=== PATIENT | female | born 1930 | race Caucasian/White ===

== ENCOUNTER 2017-01-22 19:21 | Emergency (ER) | payer OTHER ==
[~2017-01-22] VITALS: Ht 152.4 cm; Wt 63.0 kg
[2017-01-22 19:30] VITALS: TEMP 37.3; Ht 152.4 cm; Wt 63.0 kg
[2017-01-22] MEDS ORDERED: DIPHTHERIA/TETANUS/PERTUSSIS 0.5 ML SYR/VIAL IM. ONE (19:45)
[2017-01-22] MEDS ORDERED: AMLO-110 PO (20:25)
[2017-01-22] MEDS ORDERED: ATOR10TA88 PO (20:25)
[2017-01-22] MEDS ORDERED: OMEP40CA41 PO (20:25)
[2017-01-22] MEDS ORDERED: LUTE15CA PO (20:25)
--- NOTE | 2017-01-22 20:43 | DIAGNOSTIC IMAGING REPORT ---
R ELBOW MIN 3 VIEWS ROUTINE CLINICAL HISTORY: eval for fx trauma. Pain. COMPARISON: None. DISCUSSION: The bones and joint spaces appear intact. There is no evidence of fracture, dislocation or bony disease. There is no evidence for soft tissue swelling. Benign soft tissue calcification of the mid arm IMPRESSION: Negative study. The above report was generated using voice recognition software. It may contain grammatical, syntax or spelling errors. Electronically signed by: Angel Luis Canela M.D. 01/22/2017 8:42 PM Dictated Date/Time: 01/22/2017 8:41 PM
--- NOTE | 2017-01-22 20:44 | DIAGNOSTIC IMAGING REPORT ---
R HIP UNILATERAL 2 VIEWS CLINICAL HISTORY: eval for fx trauma COMPARISON: None. DISCUSSION: The bones and joint spaces appear intact. There is no evidence of fracture, dislocation or bony disease. There is no evidence for soft tissue swelling. IMPRESSION: Negative study. The above report was generated using voice recognition software. It may contain grammatical, syntax or spelling errors. Electronically signed by: Angel Luis Canela M.D. 01/22/2017 8:43 PM Dictated Date/Time: 01/22/2017 8:42 PM
[2017-01-22] MEDS ORDERED: ACETAMINOPHEN 325 MG TAB ONE (20:46)
--- NOTE | 2017-01-22 20:46 | DIAGNOSTIC IMAGING REPORT ---
R SHOULDER MIN 2 VIEWS ROUTINE CLINICAL HISTORY: eval for fx COMPARISON: None. DISCUSSION: The bones and joint spaces appear intact. There is no evidence of fracture, dislocation or bony disease. There is no evidence for soft tissue swelling. Mild degenerative change mild calcific supraspinatus tendinitis IMPRESSION: Negative study. Mild degenerative change. Mild calcific supraspinatus tendinitis. The above report was generated using voice recognition software. It may contain grammatical, syntax or spelling errors. Electronically signed by: Angel Luis Canela M.D. 01/22/2017 8:45 PM Dictated Date/Time: 01/22/2017 8:44 PM
[2017-01-22 21:42] VITALS: BP 140/65; PULSE 76; O2SAT 95
--- NOTE | 2017-01-23 00:21 | EMERGENCY ROOM VISIT NOTE ---
History Report prepared by Ritika: Danielle Musa Under the Supervision of: Dr. Glenroy Mo M.D. First contact with patient: 19:35 Chief Complaint: FALL Stated Complaint: FELL ON RIGHT SIDE, BRUISED ELBOW History of Present Illness The patient is an 86 year old female who presents to the Emergency Room with complaints of a sudden fall that occurred just prior to arrival. She rates her discomfort as a 7/10 in severity. The patient states that as she was walking, a trolly was coming towards her with a box on it. She states in order to avoid being hit with the trolly, she fell out of the way onto her right elbow, right shoulder, and right hip. The patient reports pain to her right elbow, right shoulder, and right hip. She denies any head trauma or headache. The patient states that she felt dizzy when she stood up, but denies any current dizziness. She denies any neck pain, chest pain, or abdominal pain. The patient is unsure of her last tetanus booster. She does state that her hip pain is much better and she is able to walk on it. Source of History: patient Onset: prior to arrival Position: other (global) Symptom Intensity: 7/10 Quality: other (fall) Timing: other (sudden) Associated Symptoms: No headache, No neck pain, No chest pain, No abdominal pain Note: Associated Symptoms: right elbow, right shoulder, and right hip pain. Review of Systems See HPI for pertinent positives & negatives. A total of 10 systems reviewed and were otherwise negative. Past Medical & Surgical Medical Problems: (1) Asthma (2) Hypertension (3) Stomach problems Surgical Problems: (1) Hx of tonsillectomy Family History Heart disease Hypertension Kidney disease Kidney stones Social History Smoking Status: Never Smoker Smokeless Tobacco Use: No Alcohol Use: none Marital Status: Housing Status: lives with significant other Occupation Status: retired Current/Historical Medications Scheduled Amlodipine (Norvasc), 5 MG PO DAILY Atorvastatin (Lipitor), 10 MG PO DAILY Lutein-Zeaxanthin (Lutein), 1 CAP PO DAILY Omeprazole (Prilosec), 40 MG PO DAILY Allergies Coded Allergies: Fish (Verified Allergy, Unknown, hives, 01/22/17) Penicillins (Verified Allergy, Unknown, swelling of face, 01/22/17) Aspirin (Verified Adverse Reaction, Unknown, vomit, 01/22/17) Physical Exam Vital Signs Date Time Temp Pulse Resp B/P (MAP) Pulse Ox O2 Delivery O2 Flow Rate FiO2 01/22/17 21:42 76 16 140/65 95 01/22/17 21:22 76 16 140/65 95 Room Air 01/22/17 19:30 37.3 79 18 126/72 97 Room Air Physical Exam Constitutional: Vital signs reviewed. Eyes: Pupils are equal round reactive to light. Conjunctiva are noninjected. ENT: Pharynx is clear without erythema or exudate. Mucous membranes are moist. Neck supple without meningeal signs. No midline tenderness to the cervical spine. Respiratory: Clear to auscultation bilaterally. Breath sounds are equal bilaterally. Cardiovascular: Regular rate and rhythm. No rubs or gallops. Systolic murmur right second ICS. GI: Soft, nondistended and nontender. Bowel sounds are present. Musculoskeletal: Tenderness to the AC joint at the right shoulder, no deformity. Tenderness to the right lateral epicondyle with abrasion. No hip tenderness or bruising. No pain with rocking of the pelvis. Integumentary: No cyanosis. Neurological: The patient is awake and alert. No focal deficits. Psychiatric: Normal affect. Medical Decision & Procedures ER Provider Diagnostic Interpretation: X-ray results as stated below per interpretation by me and the radiologist: R SHOULDER MIN 2 VIEWS ROUTINE CLINICAL HISTORY: eval for fx COMPARISON: None. DISCUSSION: The bones and joint spaces appear intact. There is no evidence of fracture, dislocation or bony disease. There is no evidence for soft tissue swelling. Mild degenerative change mild calcific supraspinatus tendinitis IMPRESSION: Negative study. Mild degenerative change. Mild calcific supraspinatus tendinitis. The above report was generated using voice recognition software. It may contain grammatical, syntax or spelling errors. Electronically signed by: Angel Luis Canela M.D. 01/22/2017 8:45 PM Dictated Date/Time: 01/22/2017 8:44 PM R HIP UNILATERAL 2 VIEWS CLINICAL HISTORY: eval for fx trauma COMPARISON: None. DISCUSSION: The bones and joint spaces appear intact. There is no evidence of fracture, dislocation or bony disease. There is no evidence for soft tissue swelling. IMPRESSION: Negative study. The above report was generated using voice recognition software. It may contain grammatical, syntax or spelling errors. Electronically signed by: Angel Luis Canela M.D. 01/22/2017 8:43 PM Dictated Date/Time: 01/22/2017 8:42 PM R ELBOW MIN 3 VIEWS ROUTINE CLINICAL HISTORY: eval for fx trauma. Pain. COMPARISON: None. DISCUSSION: The bones and joint spaces appear intact. There is no evidence of fracture, dislocation or bony disease. There is no evidence for soft tissue swelling. Benign soft tissue calcification of the mid arm IMPRESSION: Negative study. The above report was generated using voice recognition software. It may contain grammatical, syntax or spelling errors. Electronically signed by: Angel Luis Canela M.D. 01/22/2017 8:42 PM Dictated Date/Time: 01/22/2017 8:41 PM Medications Administered Medications (Trade) Dose Ordered Sig/Ayima Route Start Time Stop Time Status Last Admin Dose Admin Diphtheria/ Pertussis/Tetanus Vacc (Adacel Inj) 0.5 ml ONCE ONCE IM. 01/22/17 19:45 01/22/17 19:46 DC 01/22/17 20:41 0.5 ML Acetaminophen (Tylenol Tab) 650 mg STK-MED ONCE .ROUTE 01/22/17 20:46 01/22/17 20:47 DC 01/22/17 20:48 650 MG ED Course 1934: The patient was evaluated in room C1B. A complete history and physical exam was performed. 1944: Ordered Adacel Inj 0.5 ml IM. 2045: Ordered Tylenol Tab 650 mg .route. 2111: I reevaluated the patient and she is doing well. I discussed the test results with her and her daughter who is translating. I discussed the treatment plan and they verbalized complete understanding and agreement. The patient is ready for discharge. Medical Decision This is an 86-year-old female who presents with injuries after fall. Differential diagnosis includes contusion, fracture, dislocation. I did perform a limited focused review of portions of the patient's old chart on the electronic medical record. The patient has had no prior visits. I did evaluate the patient as noted above. I did obtain history from the patient as well as her daughter who was helping with translation. The patient is presenting with a mechanical fall with pain to the right side of her arm and hip. She did not have any head injury. She did feel lightheaded upon initially standing after the fall but now feels better. She had no symptoms prior to the fall. I did order x-rays of the right upper extremity and right hip. I did review the images myself as well as the radiology report as described above. There is no evidence of acute fracture or dislocation. She does have foot appears to be calcific tendinitis of the supraspinatus tendon. The patient was given an Adacel shot IM. She was given Tylenol for her pain. I did discuss the test results with the patient and daughter. I did give the patient a sling which she will use only as needed. She will follow with her doctor. She was discharged in good condition. Medication Reconcilliation Current Medication List: was personally reviewed by me Blood Pressure Screening Patient's blood pressure: Elevated blood pressure Blood pressure disposition: Elevated BP felt to be situational, Did not require urgent referral Impression Primary Impression: Multiple contusions Additional Impression: Fall Scribe Attestation The scribe's documentation has been prepared under my direct and personally reviewed by me in its entirety. I confirm that the note above accurately reflects all work, treatment, procedures, and medical decision making performed by me. Departure Information Dispostion Home / Self-Care Referrals No Doctor, Assigned (PCP) Forms HOME CARE DOCUMENTATION FORM, IMPORTANT VISIT INFORMATION Patient Instructions Bruises Contusions, My [facility] Additional Instructions You have been examined and treated today on an emergency basis only. This is not a substitute for, or an effort to provide, complete comprehensive medical care. It is impossible to recognize and treat all injuries or illnesses in a single emergency department visit. It is therefore important that you follow up closely with your physician. Call as soon as possible for an appointment. Return for worsening symptoms or if you develop any other concerning symptoms. Problem Qualifiers Additional Impression: Fall Encounter type: initial encounter Qualified Codes: W19.XXXA - Unspecified fall, initial encounter
== END 2017-01-22 21:30 | disposition home or self-care (01) ==
LOC: C.EDB 19:27 → C.EDC 21:30
DX: T14.8 Other injury of unspecified body region (principal); W19.XXXA Unspecified fall, initial encounter; Y92.89 Other specified places as the place of occurrence of the external cause; J45.909 Unspecified asthma, uncomplicated; I10 Essential (primary) hypertension; Z82.49 Family history of ischemic heart disease and other diseases of the circulatory system; Z84.1 Family history of disorders of kidney and ureter; Z79.899 Other long term (current) drug therapy

== ENCOUNTER 2019-11-26 14:28 | Observation (INO) ==
--- NOTE | 2019-11-26 15:32 | Emergency Department Note ---
History of Present Illness General Chief complaint: Chest Pain Stated complaint: CHEST PAIN,SOB Time Seen by Provider: 11/26/19 15:12 Source: patient and family Mode of arrival: ambulatory Limitations: language barrier History of Present Illness Provider complaint: Chest pain Onset (ago): year(s) Location: chest Radiation: non-radiation Pain Consistency: + now resolved Quality: + other (Pressure) Relieved By: + rest and + other (Removal of bra) Exacerbated By: + other (Exertion) Associated symptoms: + shortness of breath; no chest pain, no cough, no fever/chills and no nausea/vomiting This is an 89-year-old female who presents with intermittent chest pressure for the past 2 to 3 years. The patient states that she has the symptoms almost every day. Her daughter states that she likes to self diagnose and often just tells her self it is allergies. There is a strong family history of cardiac disease but she has no personal history of CAD. She describes the chest discomfort as a pressure across her upper chest. It does not radiate. It is worse with exertion and better with rest. She states that sometimes it is better when she takes off her bra. She also states that at times she gets it at rest. It is associated with some shortness of breath as well as some ligh theadedness. She went to her PCP today who sent her here for evaluation. The patient believes she had a cardiac stress test 3 years ago and was told that the pressure in her chest was not from her heart. She denies any fever, cough or cold symptoms, abdominal pain, vomiting or known exposure to COVID-19. She is not having any chest discomfort at this time. She did just walk from the waiting room to room C2. Home Medications Home Medications Medication Instructions Recorded Confirmed Type amlodipine 10 mg PO QPM 11/26/19 11/26/19 History wzdvaqzr-wxp-DE-lycopen-lutein 1 tab PO QAM 11/26/19 11/26/19 History [Centrum Silver] omeprazole 40 mg PO QAM 11/26/19 11/26/19 History psyllium husk [Fiber-Caps 0 g PO AMPM 11/26/19 11/26/19 History (psyllium husk)] simvastatin 10 mg PO QPM 11/26/19 11/26/19 History vit C,H-Pz-szqgn-lutein-zeaxan 1 tab PO AMPM 11/26/19 11/26/19 History [PreserVision AREDS-2] Allergies Allergy/AdvReac Type Severity Reaction Status Date / Time Penicillins Allergy Unknown swelling Verified 11/26/19 16:04 of face aspirin AdvReac Unknown vomit Verified 11/26/19 16:04 Fish Allergy Unknown hives Uncoded 11/26/19 16:04 Past Med/Surg History Medical History Hyperlipidemia Hypertension (Chronic) Family History Mother Heart disease Social History Smoking Status: Never smoker Do You Dip or Chew Tobacco: No; Hx Alcohol Use: No Hx Substance Use: No Preferred Language: Mohawk Communication Ability: Effective Childhood Development Teacher Required: Yes Beliefs That Will Affect Care: None Current Living Situation: Family Other Information That Helps Us Care for You: No Feels Safe at Home: Yes Safety Concerns: Feels Safe At This Time Review of Systems See HPI for pertinent positives & negatives. and A total of 10 systems reviewed and were otherwise negative Physical Exam Vital Signs Vital Signs - 24 hr 11/26/19 14:36 11/26/19 15:40 11/26/19 15:45 Temperature 36.6 C Temperature Source Oral Pulse Rate 70 71 71 Pulse Rate from SpO2 Sensor 70 Pulse Rhythm Regular Respiratory Rate 20 16 23 Respiratory Depth Normal Blood Pressure 136/67 163/77 H Blood Pressure Mean 90 107 Pulse Oximetry 99 100 100 Oxygen Delivery Method Room Air Room Air Sepsis Recent Fever Within 48 Hours No Sepsis New/Unexplained Change in Mental Status N/A Sepsis Action Taken by Nursing No Action Required 11/26/19 16:00 11/26/19 16:30 11/26/19 17:00 Temperature Temperature Source Pulse Rate 70 70 70 Pulse Rate from SpO2 Sensor 70 70 70 Pulse Rhythm Respiratory Rate 23 16 15 Respiratory Depth Blood Pressure 149/65 H 145/71 H 144/68 H Blood Pressure Mean 92 108 119 Pulse Oximetry 98 99 100 Oxygen Delivery Method Room Air Room Air Room Air Sepsis Recent Fever Within 48 Hours Sepsis New/Unexplained Change in Mental Status Sepsis Action Taken by Nursing 11/26/19 17:31 11/26/19 18:00 11/26/19 18:30 Temperature Temperature Source Pulse Rate 74 76 76 Pulse Rate from SpO2 Sensor 74 76 75 Pulse Rhythm Respiratory Rate 19 19 21 Respiratory Depth Blood Pressure 174/84 H 149/81 H 157/64 H Blood Pressure Mean 141 118 96 Pulse Oximetry 99 97 98 Oxygen Delivery Method Room Air Room Air Room Air Sepsis Recent Fever Within 48 Hours Sepsis New/Unexplained Change in Mental Status Sepsis Action Taken by Nursing 11/26/19 19:00 Temperature Temperature Source Pulse Rate 83 Pulse Rate from SpO2 Sensor 82 Pulse Rhythm Respiratory Rate 19 Respiratory Depth Blood Pressure 164/90 H Blood Pressure Mean 131 Pulse Oximetry 97 Oxygen Delivery Method Room Air Sepsis Recent Fever Within 48 Hours Sepsis New/Unexplained Change in Mental Status Sepsis Action Taken by Nursing Constitutional: Vital signs reviewed. Eyes: Pupils are equal round reactive to light. Conjunctiva are noninjected. ENT: Pharynx is clear without erythema or exudate. Mucous membranes are moist. Neck supple without meningeal signs. Respiratory: Clear to auscultation bilaterally. Breath sounds are equal bilaterally. Cardiovascular: Regular rate and rhythm. Early systolic murmur best heard in the second right ICS. GI: Soft, nondistended and nontender. Bowel sounds are present. Musculoskeletal: No peripheral edema. No lower extremity tenderness. Integumentary: No cyanosis. or jaundice. Neurological: The patient is awake and alert. No focal deficits. Psychiatric: Normal affect. Not anxious appearing. Course Administered Medications Amlodipine Besylate (Norvasc) 10 mg PO QPM [facility] Stop: 12/26/19 20:59 Last Admin: 11/26/19 21:12 Dose: 10 mg Documented by: [id number] Heparin Sodium (Porcine) (Heparin Sodium (Porcine)) 5,000 units SQ Q12 PATRICK Stop: 12/26/19 20:59 Last Admin: 11/26/19 21:12 Dose: 5,000 units Documented by: [id number] Cosigned by: [id number] Medical Decision Making Differential Diagnosis Unstable angina, OR, GERD, pleurisy, pneumonia Medical Records Attestation: I reviewed the patient's medical records. I did perform a limited focused review of portions of the patient's old chart on the electronic medical record. The patient has had no recent pertinent visits to this hospital. Home Medications Current Medication List: was personally reviewed by me Laboratory Data Attestation: I reviewed the patient's lab results. Result diagrams: 11/26/19 15:40 11/26/19 15:40 Lab Results 11/26/19 11/26/19 11/26/19 Range/Units 15:40 15:40 15:40 WBC 7.32 (4.8-10.8) K/uL RBC 4.14 L (4.2-5.4) M/uL Hgb 12.9 (12.0-16.0) g/dL Hct 38.4 (37-47) % MCV 92.8 (80-100) fL MCH 31.2 (25-34) pg MCHC 33.6 (32-36) g/dL RDW Std Deviation 46.0 (36.4-46.3) fL RDW Coeff of Katty 13.6 (11.5-14.5) % Plt Count 281 (130-400) K/uL MPV 9.8 (7.4-10.4) fL Immature Gran % (Auto) 0.1 % Neut % (Auto) 56.5 % Lymph % (Auto) 30.9 % [place]ois % (Auto) 9.3 % Eos % (Auto) 2.7 % Baso % (Auto) 0.5 % Neut # (Auto) 4.13 (1.4-6.5) K/uL Lymph # (Auto) 2.26 (1.2-3.4) K/uL [place]ois # (Auto) 0.68 H (0.11-0.59) K/uL Eos # (Auto) 0.20 (0-0.5) K/uL Baso # (Auto) 0.04 (0-0.2) K/uL Immature Gran # (Auto) 0.01 (0.00-0.02) K/uL PT 10.7 (9.0-12.0) Seconds INR 1.0 (0.9-1.1) APTT 29.1 (21.0-31.0) Seconds PTT Ratio 1.0 Sodium 142 (136-145) mmol/L Potassium 4.2 (3.5-5.1) mmol/L Chloride 112 H (98-107) mmol/L Carbon Dioxide 26 (21-32) mmol/L Anion Gap 4.0 (3-11) BUN 23 H (7-18) mg/dl Creatinine 0.83 (0.6-1.2) mg/dl Est Cr Clr Drug Dosing 37.9 ml/min Est GFR ( Amer) 72.5 Est GFR (Non-Af Amer) 62.5 BUN/Creatinine Ratio 27.2 H (10-20) Glucose 74 (70-99) mg/dl Calcium 9.5 (8.5-10.1) mg/dl Total Bilirubin 0.5 (0.2-1) mg/dl AST 15 (15-37) U/L ALT 18 (12-78) U/L Alkaline Phosphatase 102 (45-117) U/L Troponin I < 0.015 (0-0.045) ng/ml Total Protein 7.8 (6.4-8.2) gm/dl Albumin 3.7 (3.4-5.0) gm/dl Globulin 4.1 H (2.5-4.0) gm/dl Albumin/Globulin Ratio 0.9 (0.9-2) Imaging Data Radiologist's Impression: XR chest 1V portable CLINICAL HISTORY: Chest Pain pain COMPARISON STUDY: No previous studies for comparison. FINDINGS: The bones soft tissues and hemidiaphragms are normal. The cardiome diastinal silhouette is normal. The lungs are clear. The pulmonary vasculature is normal. IMPRESSION: Negative chest. ACT 112: Negative or not required by law. The above report was generated using voice recognition software. It may contain grammatical, syntax or spelling errors. Electronically signed by: Angel Luis Canela M.D. 11/26/2019 4:00 PM Dictated: 11/26/19 1600 Transcribed: 11/26/19 1600 ECG Data Attestation: I personally reviewed and interpreted this ECG as follows: Indication: + chest pain Rate (beats per minute): 70 Rhythm: + normal sinus ECG Intervals/blocks: no Left bundle branch block ECG ST segments: no ST elevation ECG Findings: no PVCs Blood Pressure Blood Pressure Findings: Elevated blood pressure Blood Pressure Disposition: Referred to patients primary care provider [facility] Narrative I did evaluate the patient as noted above. I did obtain history from the patient as well as from her daughter who is assisting with translation. They declined a formal oil and gas field technician. IV access was established. I did place an order for continuous cardiac monitoring. The monitor showed normal sinus rhythm at a rate of 73. I did order and personally review the patient's 12-lead EKG as described above. She has no acute ischemic changes. I did order and personally reviewed the images of the patient's chest x-ray as described above. There is no evidence of pneumonia or acute abnormality. I did order and review the patient's blood work as noted in the electronic medical record. CBC is unremarkable without leukocytosis or anemia. Troponin is negative. I did reassess the patient. I did discuss the test results with the patient and her daughter. I did recommend hospitalization for repeat cardiac biomarkers and further evaluation. They were agreeable with this plan. I did discuss the case with the hospitalist and case liner. Impression & Plan Exertional chest pain Discharge Plan Visit Data *Final* Discharge Date/Time: 11/26/19 19:54 Chief Complaint: Chest Pain Stated Complaint: CHEST PAIN,SOB ED Provider: Glenroy Mo Discharge Problem: Exertional chest pain Patient Disposition: Admitted As Inpatient Discharge Instructions Interventions: ED Discharge Assessment Last Done: 11/26/19 19:54
[2019-11-26 15:56] LABS: Basophils # (auto) 0.04 K/uL (0-0.2); Basophils % (auto) 0.5 %; Eosinophils % (auto) 2.7 %; Hematocrit (blood only) 38.4 % (37-47); Hemoglobin 12.9 g/dL (12.0-16.0); Immature Granulocytes # (auto) 0.01 K/uL (0.00-0.02); Immature Granulocytes % (auto) 0.1 %; Lymphocytes # (auto) 2.26 K/uL (1.2-3.4); Lymphocytes % (auto) 30.9 %; Mean Corpuscular Hemoglobin 31.2 pg (25-34); Mean Corpuscular Hgb Conc 33.6 g/dL (32-36); Mean Corpuscular Volume 92.8 fL (80-100); Mean Platelet Volume 9.8 fL (7.4-10.4); Monocytes # (auto) 0.68 K/uL (0.11-0.59); Monocytes % (auto) 9.3 %; Neutrophils # (auto) 4.13 K/uL (1.4-6.5); Neutrophils % (auto) 56.5 %; Platelet Count 281 K/uL (130-400); RDW Coefficient of Variation 13.6 % (11.5-14.5); Red Blood Count 4.14 M/uL (4.2-5.4); White Blood Count 7.32 K/uL (4.8-10.8)
--- NOTE | 2019-11-26 16:02 | XRay Report ---
XR chest 1V portable CLINICAL HISTORY: Chest Pain pain COMPARISON STUDY: No previous studies for comparison. FINDINGS: The bones soft tissues and hemidiaphragms are normal. The cardiomediastinal silhouette is n ormal. The lungs are clear. The pulmonary vasculature is normal. IMPRESSION: Negative chest. ACT 112: Negative or not required by law. The above report was generated using voice recognition software. It may contain grammatical, syntax or spelling errors. Electronically signed by: Angel Luis Canela M.D. 11/26/2019 4:00 PM
[2019-11-26 16:06] LABS: Partial Thromboplastin Time 29.1 Seconds (21.0-31.0); Prothrombin Time 10.7 Seconds (9.0-12.0)
[2019-11-26 16:19] LABS: Alanine Aminotransferase 18 U/L (12-78); Albumin Level 3.7 gm/dl (3.4-5.0); Aspartate Aminotransferase 15 U/L (15-37); BUN Creatinine Ratio 27.2 (10-20); Blood Urea Nitrogen 23 mg/dl (7-18); Calcium 9.5 mg/dl (8.5-10.1); Carbon Dioxide 26 mmol/L (21-32); Chloride 112 mmol/L (98-107); Creatinine Clr Calc Pharmacy 37.9 ml/min; Est GFR (African American) 72.5; Est GFR (Non-African American) 62.5; Glucose 74 mg/dl (70-99); Potassium 4.2 mmol/L (3.5-5.1); Sodium 142 mmol/L (136-145)
[2019-11-26 16:24] LABS: Albumin Globulin Ratio 0.9 (0.9-2); Alkaline Phosphatase 102 U/L (45-117); Bilirubin,Total 0.5 mg/dl (0.2-1); Globulin 4.1 gm/dl (2.5-4.0); Total Protein 7.8 gm/dl (6.4-8.2); Troponin I < 0.015 ng/ml (0-0.045)
--- NOTE | 2019-11-26 19:28 | History & Physical Report ---
Date of Service November 26, 2019 Assessment & Plan (1) Shortness of breath: 89 yo F PMHx HTN, HLD, seasonal allergies for admission to observation for chest pressure rule out. Chest pressure and SOB with activity: - Patient without symptoms of SOB or chest pain at this time. - CXR negative for pneumonia. - Initial troponin negative, will trend. - EKG without ST/T wave changes. - Differentials include severe valvular pathology (such as aortic stenosis) causing SOB and chest pressure with exertion; also ACS/stable angina. - Patient with recent fasting BSG 92, total cholesterol 226, HDL 81, LDL 124 in May 2019. Will not repeat. - May require titration of cholesterol medication. - Cannot take baby aspirin due to intolerance (vomiting side effect). - For Echo tomorrow AM, Heart Healthy diet until midnight. HTN: - Continue home amlodipine. HLD: - Continue home simvastatin. Code Status: FULL CODE FEN/GI: Heart Healthy, NPO at midnight DVT ppx: Heparin 5000u SQ q12h Dispo: Med/Surg with Telemetry for cardiac monitoring, Echo AM (2) Chest pressure: (3) Hypertension: (4) Hyperlipidemia: History of Present Illness Chief Complaint: chest pressure and SOB with exertion Primary Care Provider: Barry Liu 89 yo Ukrainian-speaking F with PMHx HTN, HLD, seasonal allergies presents with daughter following appointment with primary care office. Daughter provides some history and assisted in translation. Patient reports that for 2-3 years she has had worsening SOB/chest pressure with exertion, such that now she will become somewhat SOB even just getting up from a chair to do the dishes. At non-acute visit today at Dr. Liu's office she mentioned these symptoms and was advised to come to ED for evaluation. She does not endorse fevers or chills, CP/SOB with rest, orthopnea, wheezing, recent URI, sick contacts, constipation or diarrhea, nausea or vomiting, dizziness or headache. Has a history of heart disease in her mother in her 70s. Patient does not drink, has never been a smoker, and no history illicit drug use. Allergies Allergy/AdvReac Type Severity Reaction Status Date / Time Penicillins Allergy Unknown swelling Verified 11/26/19 16:04 of face aspirin AdvReac Unknown vomit Verified 11/26/19 16:04 Fish Allergy Unknown hives Uncoded 11/26/19 16:04 Home Medications Home Medications Medication Instructions Recorded Confirmed Type amlodipine 10 mg PO QPM 11/26/19 11/26/19 History szdbefdc-ygw-YZ-lycopen-lutein 1 tab PO QAM 11/26/19 11/26/19 History [Centrum Silver] omeprazole 40 mg PO QAM 11/26/19 11/26/19 History psyllium husk [Fiber-Caps 0 g PO AMPM 11/26/19 11/26/19 History (psyllium husk)] simvastatin 10 mg PO QPM 11/26/19 11/26/19 History vit C,G-Xp-pgejt-lutein-zeaxan 1 tab PO AMPM 11/26/19 11/26/19 History [PreserVision AREDS-2] Past Med/Surg History Medical History Hyperlipidemia Hypertension (Chronic) Family History Mother Heart disease Social History Smoking Status: Never smoker Do You Dip or Chew Tobacco: No; Hx Alcohol Use: No Hx Substance Use: No Preferred Language: Ukrainian Communication Ability: Effective Flight Manager Required: Yes Beliefs That Will Affect Care: None Current Living Situation: Family Other Information That Helps Us Care for You: No Feels Safe at Home: Yes Safety Concerns: Feels Safe At This Time Review of Systems Review of Systems: All systems reviewed & are unremarkable except as noted in HPI & below Physical Exam Constitutional: WD/WN, vitals as above Eyes: PERRL, conjunctivae normal, anicteric sclerae ENMT: external ear and nose normal, oropharynx normal Neck: normal visual inspection Respiratory: normal respiratory effort, lungs clear to auscultation Cardiovascular: Rate/Rhythm: regular rate and regular rhythm Heart Sounds: + murmur (4/6 systolic murmur best heard over RUSB with radiation to b/l carotids) Gastrointestinal (Abdomen): normal bowel sounds, soft, nontender, no hepatosplenomegaly Musculoskeletal: no cyanosis or clubbing, extremities motor strength 5/5 Skin: no rashes, warm and dry Neurologic: moves all extremities; no focal motor deficits Speech / Cognition: normal speech Motor/Sensory: no tremor Psychiatric: A+Ox3, euthymic affect Results & Data Results & Data ([facility]) Vital Signs (Past 12 Hours) Vital Signs Temp Pulse Resp BP Pulse Ox 11/26/19 17:31 74 19 174/84 H 99 11/26/19 17:00 70 15 144/68 H 100 11/26/19 16:30 70 16 145/71 H 99 11/26/19 16:00 70 23 149/65 H 98 11/26/19 15:45 71 23 163/77 H 100 11/26/19 15:40 71 16 100 11/26/19 14:36 36.6 C 70 20 136/67 99 Laboratory Results Lab Results 11/26/19 11/26/19 11/26/19 Range/Units 15:40 15:40 15:40 WBC 7.32 (4.8-10.8) K/uL RBC 4.14 L (4.2-5.4) M/uL Hgb 12.9 (12.0-16.0) g/dL Hct 38.4 (37-47) % MCV 92.8 (80-100) fL MCH 31.2 (25-34) pg MCHC 33.6 (32-36) g/dL RDW Std Deviation 46.0 (36.4-46.3) fL RDW Coeff of Katty 13.6 (11.5-14.5) % Plt Count 281 (130-400) K/uL MPV 9.8 (7.4-10.4) fL Immature Gran % (Auto) 0.1 % Neut % (Auto) 56.5 % Lymph % (Auto) 30.9 % [place] % (Auto) 9.3 % Eos % (Auto) 2.7 % Baso % (Auto) 0.5 % Neut # (Auto) 4.13 (1.4-6.5) K/uL Lymph # (Auto) 2.26 (1.2-3.4) K/uL [place] # (Auto) 0.68 H (0.11-0.59) K/uL Eos # (Auto) 0.20 (0-0.5) K/uL Baso # (Auto) 0.04 (0-0.2) K/uL Immature Gran # (Auto) 0.01 (0.00-0.02) K/uL PT 10.7 (9.0-12.0) Seconds INR 1.0 (0.9-1.1) APTT 29.1 (21.0-31.0) Seconds PTT Ratio 1.0 Sodium 142 (136-145) mmol/L Potassium 4.2 (3.5-5.1) mmol/L Chloride 112 H (98-107) mmol/L Carbon Dioxide 26 (21-32) mmol/L Anion Gap 4.0 (3-11) BUN 23 H (7-18) mg/dl Creatinine 0.83 (0.6-1.2) mg/dl Est Cr Clr Drug Dosing 37.9 ml/min Est GFR ( Amer) 72.5 Est GFR (Non-Af Amer) 62.5 BUN/Creatinine Ratio 27.2 H (10-20) Glucose 74 (70-99) mg/dl Calcium 9.5 (8.5-10.1) mg/dl Total Bilirubin 0.5 (0.2-1) mg/dl AST 15 (15-37) U/L ALT 18 (12-78) U/L Alkaline Phosphatase 102 (45-117) U/L Troponin I < 0.015 (0-0.045) ng/ml Total Protein 7.8 (6.4-8.2) gm/dl Albumin 3.7 (3.4-5.0) gm/dl Globulin 4.1 H (2.5-4.0) gm/dl Albumin/Globulin Ratio 0.9 (0.9-2) Diagnostic Findings XR chest 1V portable CLINICAL HISTORY: Chest Pain pain COMPARISON STUDY: No previous studies for comparison. FINDINGS: The bones soft tissues and hemidiaphragms are normal. The cardiomediastinal silhouette is normal. The lungs are clear. The pulmonary vasculature is normal. IMPRESSION: Negative chest. ACT 112: Negative or not required by law. The above report was generated using voice recognition software. It may contain grammatical, syntax or spelling errors. Electronically signed by: Angel Luis Canela M.D. 11/26/2019 4:00 PM Dictated: 11/26/19 1600 Transcribed: 11/26/19 1600 ECG Additional Comments: NSR at 70bpm, HH=341, QRS=92, FRb=356, no acute ischemic changes Code Status & VTE Plan VTE Prophylaxis Plan VTE Prophylaxis will be ordered: Yes Supervising Physician Co-Signing Physician Notes Patient seen and examined, chart reviewed, case discussed with Dr. Padron and I agree with her assessment and plan as documented above. Briefly, patient is an 89yo female presenting with progressive GRADY/SOB and chest pressure with exertion. On exam she is afebrile, hypertensive at 174/84 otherwise HD stable, NAD Skin -no rash HEENT - NC/AT, PERRL, EOMI, MMM, Neck supple Heart - +S1/S2, regular, 4/6 CLARITZA at 2nd right ICS with radiation across the precordium and to bilateral carotids Lungs - CTA Abd - +BS, soft, NT/ND Ext - No edema, 2+ pulses Labs and images reviewed. Troponin negative x 1. EKG with no ischemic changes Assessment/Plan - 89yo female with longstanding progressive GRADY/SOB and chest heaviness -Observation with telemetry -Trend troponin -Check 2D echo in AM -Initiate ASA therapy for now -Continue Simvastatin -Remainder of plan as above Resident Activity Tracking Resident Involvement: Resident Care Provided Care Provided: Adult Hospital Medicine (1) Hyperlipidemia Hyperlipidemia type: unspecified Qualified Code(s): E78.5 - Hyperlipidemia, unspecified (2) Hypertension Hypertension type: essential hypertension Qualified Code(s): I10 - Essential (primary) hypertension
[2019-11-26] MEDS ORDERED: ACETAMINOPHEN 325 MG TAB PO PRN (20:12)
[2019-11-26] MEDS ORDERED: ONDANSETRON INJ 2 MG/ML 2 ML VIAL IV PRN (20:12)
[2019-11-26] MEDS ORDERED: POLYETHYLENE (MIRALAX) 17 GM PACK PO PRN (20:12)
[2019-11-26] MEDS ORDERED: SIMVASTATIN 10 MG TAB PO SCH (21:00)
[2019-11-26] MEDS ORDERED: AMLODIPINE BESYLATE 5 MG TAB PO SCH (21:00)
[2019-11-26] MEDS: HEPARIN SOD 5,000 UNIT/0.5 ML VIAL SQ SCH (21:12)
--- NOTE | 2019-11-26 22:03 | Billing Data ---
Date of Service November 26, 2019 Coding Level of Care Code 89830 OBS Care - Level 2
--- NOTE | 2019-11-27 07:18 | Electrocardiogram Report ---
Test Reason : Blood Pressure : / mmHG Vent. Rate : 070 BPM Atrial Rate : 070 BPM P-R Int : 184 ms QRS Dur : 092 ms QT Int : 400 ms P-R-T Axes : 030 -07 011 degrees QTc Int : 432 ms Poor data quality, interpretation may be adversely affected Normal sinus rhythm Normal ECG No previous ECGs available Confirmed by Vinh Coffey ([id number]) on 11/27/2019 7:18:13 AM Referred By: Barry Liu Confirmed By:Vinh Coffey
[2019-11-27] MEDS ORDERED: PANTOprazole 40 MG TAB PO SCH (09:00)
[2019-11-27] MEDS: HEPARIN SOD 5,000 UNIT/0.5 ML VIAL SQ SCH (09:07)
--- NOTE | 2019-11-27 14:33 | XCELERA ---
[id number] \\[id number]___[id number]
--- NOTE | 2019-12-05 22:48 | Discharge Summary ---
Date of Service November 27, 2019 Admission HPI Per Admitting Provider 89 yo Latvian-speaking F with PMHx HTN, HLD, seasonal allergies presents with daughter following appointment with primary care office. Daughter provides some history and assisted in translation. Patient reports that for 2-3 years she has had worsening SOB/chest pressure with exertion, such that now she will become somewhat SOB even just getting up from a chair to do the dishes. At non-acute visit today at Dr. Liu's office she mentioned these symptoms and was advised to come to ED for evaluation. She does not endorse fevers or chills, CP/SOB with rest, orthopnea, wheezing, recent URI, sick contacts, constipation or diarrhea, nausea or vomiting, dizziness or headache. Has a history of heart disease in her mother in her 70s. Patient does not drink, has never been a smoker, and no history illicit drug use. Principal Diagnosis CHEST PAIN Discharge Exam Constitutional: WD/WN, vitals as above Eyes: PERRL, conjunctivae normal, anicteric sclerae ENMT: external ear and nose normal, oropharynx normal Neck: normal visual inspection Respiratory: normal respiratory effort, lungs clear to auscultation Cardiovascular: Rate/Rhythm: regular rate and regular rhythm Heart Sounds: + murmur (4/6 systolic murmur best heard over RUSB with radiation to b/l carotids) Gastrointestinal (Abdomen): normal bowel sounds, soft, nontender, no hepatosplenomegaly Musculoskeletal: no cyanosis or clubbing, extremities motor strength 5/5 Skin: no rashes, warm and dry Neurologic: moves all extremities; no focal motor deficits Speech / Cognition: normal speech Motor/Sensory: no tremor Psychiatric: A+Ox3, euthymic affect Discharge Data Allergies Allergy/AdvReac Type Severity Reaction Status Date / Time Penicillins Allergy Unknown swelling Verified 11/26/19 16:04 of face aspirin AdvReac Unknown vomit Verified 11/26/19 16:04 Fish Allergy Unknown hives Uncoded 11/26/19 16:04 Consultations 11/26/19 18:00 ED Decision to Admit Stat Hospital Course (1) Shortness of breath: 89 yo F PMHx HTN, HLD, seasonal allergies for admission to observation for chest pressure rule out. Chest pressure and SOB with activity: - Patient without symptoms of SOB or chest pain at this time. - CXR negative for pneumonia. - Initial troponin negative, will trend. - EKG without ST/T wave changes. - Differentials include severe valvular pathology (such as aortic stenosis) causing SOB and chest pressure with exertion; also ACS/stable angina. - Patient with recent fasting BSG 92, total cholesterol 226, HDL 81, LDL 124 in May 2019. Will not repeat. - May require titration of cholesterol medication. - Cannot take baby aspirin due to intolerance (vomiting side effect). - Echo completed, no wall motion abnormalities or systolic dysfunction. no severe aortic stenosis noted -will recommend f/u with cardio as outpatient. -will add betablocker to help control BP HTN: - Continue home amlodipine. HLD: - Continue home simvastatin. (2) Chest pressure: (3) Hypertension: (4) Hyperlipidemia: Total Time Total Time Spent Total Time Spent (In Minutes): 32 Discharge Plan Discharge Items Patient Disposition: Home - Self-Care Reason For Visit: CP RULE OUT, SOB Discharge Diagnosis: Hypertension/ SOB Activity: Resume your previous activity Non-emergency contact: Primary Care Provider Call non-emergency contact if: you have any medication questions Follow-up/Referrals: Barry Liu [Primary Care Provider] - Diet: Low Sodium (2gm) Addtl Attending Provider Instructions: You have been hospitalized for an acute medical problem. During your stay at [facility], we have made an effort to correct the problem that brought you to the hospital while keeping you as comfortable as possible. Medications were used to bring your condition under control and your discharge instructions will include directions for any medications you should take after leaving the hospital. Please make sure you see your Primary Care Provider as part of your follow up plan. Pending Studies at Discharge: No Stand-Alone Forms: My [facility], Smoking Cessation Medications and DC Order Prescriptions: New metoprolol succinate 25 mg tablet extended release 24 hr 25 mg PO PM Qty: 30 RF: 0 Continued simvastatin 10 mg tablet 10 mg PO QPM RF: 0 omeprazole 40 mg capsule,delayed release(DR/EC) 40 mg PO QAM RF: 0 amlodipine 10 mg tablet 10 mg PO QPM RF: 0 psyllium husk [Fiber-Caps (psyllium husk)] 0.52 gram Capsule 0 g PO AMPM RF: 0 Centrum Silver 0.4-300-250 mg-mcg-mcg Tablet 1 tab PO QAM RF: 0 PreserVision AREDS-2 969-815-64-1 tz-ffjf-jj-mg Capsule 1 tab PO AMPM RF: 0 Discharge Orders: Discharge Order (Routine); Ordered 11/27/19 Ordered By: Michael Delarosa Admission Data Admit Date/Time: 11/26/19 19:27 Attending Provider: Michael Delarosa Admit Provider: Liliam Padron Primary Care Provider: Barry Liu Other Interventions: Discharge Summary Assessment (RN) Last Done: 11/27/19 14:46 DC Date/Time DO NOT enter until pt leaves facility: 11/27/19 15:39 Coding Level of Care Code 05669 OBS Care - Discharge Diagnoses Shortness of breath R06.02 Chest pressure R07.89 Hypertension I10 Hypertension type: essential hypertension Hyperlipidemia E78.5 Hyperlipidemia type: unspecified
== END 2019-11-27 15:39 | disposition home or self-care (01) ==
LOC: 2N 14:28 → ED 14:28 → SUATTDRO 19:27 → 2N 19:54